=== PATIENT | male | born 1975 | race Two or more races ===

== ENCOUNTER 2019-02-14 04:43 | Emergency (ER) | payer MEDICAID, OTHER ==
[~2019-02-14] VITALS: Ht 172.7 cm; Wt 81.6 kg
[2019-02-14] MEDS ORDERED: TETRACAINE HCL/PF 0.5% UD 2 ML BOTTLE ONE (05:07)
--- NOTE | 2019-02-14 05:13 | NUR ---
BIB FAMILY FROM HOME. TO ER BED 2. AAOX4, NO RESP DISTRESS NOTED. AMBULATORY. C/O BILAT EYE PAIN 2ND TO WELDING. PAIN STARTED @ 10PM. EYES ARE NOTED RED. PAIN 04/11. AWAITING MD FOR EVAL. VERBAL ORDERS RECEIVED TO INSTILL 2 DROPS OF TETRACAINE ON BOTH EYES FOR PAIN. ORDERS NOTED AND CARRIED OUT.
[2019-02-14] MEDS ORDERED: ACETAMINOPHEN 325 MG TABLET ONE (05:47)
--- NOTE | 2019-02-14 06:03 | NUR ---
PT COMPLAINED OF PAIN STARTING AGAIN. MD NOTIFIED. APRROVED TO INSTILL 1 DROP OF TETRACAINE ON BTOH EYES
[2019-02-14] MEDS ORDERED: FLUORESCEIN SODIUM OPHTH 1 EA STRIP ONE (06:22)
[2019-02-14] MEDS ORDERED: FLUORESCEIN SODIUM OPHTH 1 EA STRIP OP ONE (06:30)
[2019-02-14] MEDS ORDERED: TETRAcaine 5 ML BOTTLE EACHEYE ONE (06:30)
--- NOTE | 2019-02-14 06:56 | NUR ---
Patient discharged to home in stable condition. Written and verbal after care instructions given. Patient verbalizes understanding of instruction. Pt ambulatory with a steady gait
[2019-02-14 06:57] VITALS: BP 148/92
== END 2019-02-14 06:58 | disposition home or self-care (01) ==
LOC: ER 04:47
DX: S05.02XA Injury of conjunctiva and corneal abrasion without foreign body, left eye, initial encounter (principal); S05.01XA Injury of conjunctiva and corneal abrasion without foreign body, right eye, initial encounter; Z98.890 Other specified postprocedural states; X58.XXXA Exposure to other specified factors, initial encounter; Y93.89 Activity, other specified; Y92.89 Other specified places as the place of occurrence of the external cause; Y99.8 Other external cause status